=== PATIENT | female | born 1940 | race Two or more races ===

== ENCOUNTER 2020-06-21 16:24 | Inpatient (IN) | payer MEDICARE, MEDICAID ==
[~2020-06-21] VITALS: Ht 157.5 cm; Wt 80.0 kg
[~2020-06-21 16:24] MED LIST: ALEN10TA22; [UNRECOGNIZED DRUG - OTHER]
[2020-06-21] MEDS ORDERED: PANTOPRAZOLE 40 MG/10 ML VIAL INJ IV ONE (16:45)
[2020-06-21 19:06] LABS: Basophils # (auto) 0 10 ^3/uL (0-0.2); Eosinophils # (auto) 0.1 10 ^3/uL (0-0.8); Monocytes # (auto) 0.2 10 ^3/uL (0-1.3); Neutrophils # (auto) 2.2 10 ^3/uL (1.6-8.6)
[2020-06-21 19:08] LABS: Basophils % (auto) 0.2 % (0.0-2.0); Eosinophils % (auto) 1.4 % (0.0-7.0); Hematocrit 15.8 % (36.0-46.0); Lymphocytes % (auto) 44.7 % (10.0-50.0); Mean Corpuscular Hemoglobin 45.9 pg (28.0-32.0); Mean Corpuscular Hgb Conc. 35.3 g/dL (32.0-36.0); Mean Corpuscular Volume 129.9 fL (80.0-100.0); Monocytes % (auto) 4.4 % (0.0-12.0); Neutrophils % (auto) 49.3 % (37.0-80.0); Nucleated Red Blood Cells % 0.2 %; Platelet Count (auto) 73 10^3/uL (140-450); Red Blood Cells 1.21 10^6/uL (4.0-5.20); White Blood Cell 4.5 10^3/uL (4.4-10.8)
[2020-06-21 19:27] LABS: INR 1.01 (0.9-1.15); Partial Thromboplastin Time 22.2 sec (23.0-31.2)
[2020-06-21 19:35] LABS: Hemoglobin 5.6 g/dL (12.2-16.2)
[2020-06-21 19:37] LABS: Albumin 4.1 g/dL (3.4-5.0); Potassium 4.6 mmol/L (3.5-5.1)
[2020-06-21 19:41] LABS: BUN/Creatinine Ratio 23.2; Bilirubin, Total 2.6 mg/dL (0.2-1.0); Total Protein 7.4 g/dL (6.4-8.2)
[2020-06-21 22:17] VITALS: BP 117/51
[2020-06-21 22:32] VITALS: BP 110/49
[2020-06-21] MEDS ORDERED: NITROGLYCERIN 0.4 MG SL TAB SL PRN (22:45)
[2020-06-21] MEDS ORDERED: TEMAZEPAM 15 MG CAP PO PRN (22:45)
[2020-06-21] MEDS ORDERED: MORPHINE SULF INJ 2 MG/ML SYRINGE 1ML IV PRN (22:45)
[2020-06-21] MEDS ORDERED: ONDANSETRON HCL 4 MG/2 ML VIAL IV PRN (22:45)
[2020-06-21] MEDS ORDERED: ACETAMINOPHEN 325 MG TAB PO PRN (22:45)
[2020-06-21 22:53] LABS: % Iron Saturation 90.7 % (15-50)
[2020-06-21 23:06] LABS: Folate (Folic Acid) 17.86 ng/mL (5.38-24)
[2020-06-21 23:10] VITALS: BP 122/50
[2020-06-21 23:35] VITALS: BP 122/50
[2020-06-22] VITALS (13 sets, daily range): BP systolic 113–154; BP diastolic 47–84
[2020-06-22 05:18] LABS: Basophils # (auto) 0 10 ^3/uL (0-0.2); Basophils % (auto) 0.3 % (0.0-2.0); Eosinophils # (auto) 0.1 10 ^3/uL (0-0.8); Eosinophils % (auto) 2.1 % (0.0-7.0); Monocytes # (auto) 0.1 10 ^3/uL (0-1.3); Monocytes % (auto) 3.7 % (0.0-12.0); Neutrophils # (auto) 1.6 10 ^3/uL (1.6-8.6); White Blood Cell 3.2 10^3/uL (4.4-10.8)
[2020-06-22 05:21] LABS: Hematocrit 20.7 % (36.0-46.0); Hemoglobin 7.6 g/dL (12.2-16.2); Lymphocytes # (auto) 1.4 10 ^3/uL (0.4-5.4); Lymphocytes % (auto) 42.5 % (10.0-50.0); Mean Corpuscular Hemoglobin 38.9 pg (28.0-32.0); Mean Corpuscular Hgb Conc. 36.9 g/dL (32.0-36.0); Mean Corpuscular Volume 105.6 fL (80.0-100.0); Neutrophils % (auto) 51.4 % (37.0-80.0); Nucleated Red Blood Cells % 0.2 %; Platelet Count (auto) 61 10^3/uL (140-450); Red Blood Cells 1.96 10^6/uL (4.0-5.20)
[2020-06-22 05:22] LABS: Red Cell Distribution Width 32.9 % (11.8-14.3)
[2020-06-22 05:41] LABS: Albumin 3.5 g/dL (3.4-5.0); Potassium 4.5 mmol/L (3.5-5.1)
[2020-06-22 05:44] LABS: BUN/Creatinine Ratio 25.8; Bilirubin, Total 3.1 mg/dL (0.2-1.0); Total Protein 6.5 g/dL (6.4-8.2)
[2020-06-22 05:47] LABS: Folate (Folic Acid) 14.5 ng/mL (5.38-24)
[2020-06-22] MEDS ORDERED: HYDROmorphone HCL 2 MG/ML VL IV ONE (09:30)
[2020-06-22] MEDS: FAMOTIDINE 20 MG TAB PO SCH ×2 (10:00→21:18)
[2020-06-22] MEDS ORDERED: PANTOPRAZOLE 40 MG/10 ML VIAL INJ IV SCH (10:00)
[2020-06-23 05:00] VITALS: BP 146/79
[2020-06-23 07:11] LABS: Basophils # (auto) 0 10 ^3/uL (0-0.2); Basophils % (auto) 0.2 % (0.0-2.0); Eosinophils # (auto) 0.1 10 ^3/uL (0-0.8); Monocytes # (auto) 0.1 10 ^3/uL (0-1.3); Neutrophils # (auto) 1.3 10 ^3/uL (1.6-8.6)
[2020-06-23 07:15] LABS: Eosinophils % (auto) 2.7 % (0.0-7.0); Hematocrit 23.2 % (36.0-46.0); Hemoglobin 8.4 g/dL (12.2-16.2); Lymphocytes # (auto) 1.7 10 ^3/uL (0.4-5.4); Lymphocytes % (auto) 53.2 % (10.0-50.0); Mean Corpuscular Hemoglobin 38.5 pg (28.0-32.0); Mean Corpuscular Hgb Conc. 36.2 g/dL (32.0-36.0); Mean Corpuscular Volume 106.5 fL (80.0-100.0); Monocytes % (auto) 3.1 % (0.0-12.0); Neutrophils % (auto) 40.8 % (37.0-80.0); Nucleated Red Blood Cells % 0.3 %; Platelet Count (auto) 63 10^3/uL (140-450); Red Blood Cells 2.18 10^6/uL (4.0-5.20); White Blood Cell 3.2 10^3/uL (4.4-10.8)
[2020-06-23 07:20] LABS: Red Cell Distribution Width 32.9 % (11.8-14.3)
[2020-06-23 07:44] LABS: Potassium 4.6 mmol/L (3.5-5.1)
[2020-06-23 07:53] LABS: Albumin 3.8 g/dL (3.4-5.0); BUN/Creatinine Ratio 28.6; Bilirubin, Total 2.9 mg/dL (0.2-1.0); Calcium 9.3 mg/dL (8.5-10.1); Total Protein 7.2 g/dL (6.4-8.2)
[2020-06-23 09:00] VITALS: BP 141/109
[2020-06-23] MEDS: FAMOTIDINE 20 MG TAB PO SCH ×2 (11:06→21:11)
[2020-06-23 13:00] VITALS: BP 147/59
[2020-06-23] MEDS ORDERED: HYDROmorphone HCL 2 MG/ML VL IV ONE (13:00)
[2020-06-23 17:00] VITALS: BP 117/59
[2020-06-23 22:00] VITALS: BP 144/80
[2020-06-24 05:00] VITALS: BP 131/65
[2020-06-24 05:40] LABS: Basophils # (auto) 0 10 ^3/uL (0-0.2); Eosinophils # (auto) 0 10 ^3/uL (0-0.8); Eosinophils % (auto) 0.5 % (0.0-7.0); Hemoglobin 7.8 g/dL (12.2-16.2); Mean Corpuscular Hgb Conc. 36.3 g/dL (32.0-36.0); Monocytes # (auto) 0.2 10 ^3/uL (0-1.3); Nucleated Red Blood Cells % 0.1 %
[2020-06-24 05:43] LABS: Basophils % (auto) 0.2 % (0.0-2.0); Hematocrit 21.4 % (36.0-46.0); Lymphocytes # (auto) 1.1 10 ^3/uL (0.4-5.4); Lymphocytes % (auto) 25.8 % (10.0-50.0); Mean Corpuscular Hemoglobin 38.6 pg (28.0-32.0); Mean Corpuscular Volume 106.4 fL (80.0-100.0); Neutrophils # (auto) 3.1 10 ^3/uL (1.6-8.6); Neutrophils % (auto) 69.5 % (37.0-80.0); Platelet Count (auto) 53 10^3/uL (140-450); Red Blood Cells 2.01 10^6/uL (4.0-5.20); White Blood Cell 4.4 10^3/uL (4.4-10.8)
[2020-06-24 06:18] LABS: Red Cell Distribution Width 31.7 % (11.8-14.3)
[2020-06-24 09:00] VITALS: BP 117/54
[2020-06-24] MEDS: FAMOTIDINE 20 MG TAB PO SCH (09:20)
[2020-06-24 09:27] LABS: Hepatitis B Surface Antibody Negative
[2020-06-24] MEDS ORDERED: CYANOCOBALAMIN (B-12) 1000 MCG/1 ML VIAL SUBCUT ONE (11:45)
[2020-06-24] MEDS ORDERED: FOLIC ACID 1 MG TAB PO ONE (11:45)
[2020-06-24 12:37] VITALS: BP 111/58
[2020-06-24 12:45] LABS: Hepatitis B Surface Antigen Negative (Negative); Hepatitis C Antibody Negative (Negative)
[2020-06-24 14:12] LABS: Urine Bacteria FEW /hpf (None Seen); Urine Blood 1+ /uL (Negative); Urine Specific Gravity 1.016 (1.001-1.035); Urine WBC 1 /hpf (0 - 5)
[2020-06-24 14:14] VITALS: BP 111/58
[2020-06-24 16:27] VITALS: BP 156/72
== END 2020-06-24 18:02 | disposition home or self-care (01) | DRG 812 ==
LOC: ER 16:24 → WEST WING 22:35 → ER 23:40 → WEST WING 23:47
PROVIDERS: ADMIT Nurse Practitioner; ATTEND Internal Medicine
PROC: 30233N1 Transfusion of Nonautologous Red Blood Cells into Peripheral Vein, Percutaneous Approach (ICD-10-PCS; principal; 2020-06-21)
PROC: 07DR3ZX Extraction of Iliac Bone Marrow, Percutaneous Approach, Diagnostic (ICD-10-PCS; 2020-06-23)
DX: D51.9 Vitamin B12 deficiency anemia, unspecified (principal); D69.6 Thrombocytopenia, unspecified; Z20.822 Contact with and (suspected) exposure to COVID-19; E66.9 Obesity, unspecified; D72.819 Decreased white blood cell count, unspecified; K76.0 Fatty (change of) liver, not elsewhere classified; M16.11 Unilateral primary osteoarthritis, right hip; Z90.710 Acquired absence of both cervix and uterus; Z68.32 Body mass index [BMI] 32.0-32.9, adult
CPT/HCPCS: 36415; 36430; 71045; 74176; 76705; 80053; 81001; 82746; 83010; 83540; 83550; 83615; 83880; 85025; 85045; 85610; 85730; 86706; 86803; 86850; 86880; 86900; 86901; 86920; 87340; 87426; 93005; 96374; 96375; C9113; G0378; J2405